=== PATIENT | female | born 1965 | race Caucasian/White ===

== ENCOUNTER → 2016-06-23 | Outpatient (CLI) | payer BC ==
--- NOTE | 2016-06-25 09:02 | SLEEPHOME ---
DATE OF PROCEDURE: 06/23/2016 ORDERED BY: Alysha Morales Diagnostic home sleep testing was performed due to concern for the obstructive sleep apnea syndrome. For testing, a NOX-T3 respiratory monitoring device was utilized. Continuous record was made of pulse, oxygen saturation, airflow, chest and abdominal strain, and body position. 10 hours and 59 minutes of data were reviewed. Of these, 7 hours and 53 minutes were marked as time in bed. During the interval marked time in bed, there were 40 respiratory events identified of 10 seconds in duration or greater for a respiratory event index of 5.1. The events identified were primarily obstructive. Baseline heart rate 74 beats per minute. Pulse rate ranged 64 to 86. Baseline saturation was 94%. Lowest oxygen saturation was 91%. Testing was performed in both the supine and nonsupine positions. IMPRESSION: Abnormal home sleep testing with repetitive respiratory events and oxygen desaturations to 91% with a respiratory event index of 5.1 is consistent with the obstructive sleep apnea syndrome. RECOMMENDATION: The patient should be referred for formal sleep evaluation and in-laboratory pressure titration.
== END ==
LOC: M SLEEP HO 11:16
PROVIDERS: ATTEND Family Medicine
DX: G47.19 Other hypersomnia (principal)

== ENCOUNTER → 2016-10-01 | Outpatient (REF) | payer BC ==
[2016-10-01 12:59] LABS: MEAN CORPUSCULAR HEMOGLOBIN 30.4 pg (27.0-33.0); MEAN CORPUSCULAR HGB CONC 33.6 g/dl (32.0-36.5); MEAN CORPUSCULAR VOLUME 90.6 fl (80.0-96.0); RED CELL DISTRIBUTION WIDTH 12.3 % (11.5-14.5); WHITE BLOOD COUNT 6.8 K/mm3 (4.0-10.0)
== END ==
LOC: M SFHCPLAZ 10:39
PROVIDERS: ATTEND Family Medicine
DX: R53.83 Other fatigue (principal)

== ENCOUNTER → 2018-02-17 | Outpatient (REF) | payer BC ==
[2018-02-17 14:50] LABS: ALBUMIN 4.3 GM/DL (3.2-5.2); ALBUMIN/GLOBULIN RATIO 1.39 (1.00-1.93); ALKALINE PHOSPHATASE 62 U/L (45-117); ALT/SGPT 28 U/L (12-78); ANION GAP 8 MEQ/L (8-16); AST/SGOT 16 U/L (7-37); BILIRUBIN,TOTAL 0.4 MG/DL (0.2-1.0); BLOOD UREA NITROGEN 15 MG/DL (7-18); CALCIUM LEVEL 9.3 MG/DL (8.5-10.1); CARBON DIOXIDE LEVEL 28 MEQ/L (21-32); CHLORIDE LEVEL 103 MEQ/L (98-107); CHOLESTEROL LEVEL 224 MG/DL (<200); CHOLESTEROL RISK RATIO 3.672 (<5); GLOMERULAR FILTRATION RATE > 60.0 (>51); GLUCOSE, FASTING 80 MG/DL (70-100); HDL CHOLESTEROL 61 MG/DL (>40); LDL CHOLESTEROL 142 MG/DL (<100); NON-HDL-C 163 MG/DL; POTASSIUM SERUM 4.3 MEQ/L (3.5-5.1); SODIUM LEVEL 139 MEQ/L (136-145); THYROID STIMULATING HORMONE 0.741 uIU/ML (0.358-3.740); TOTAL 25(OH) VITAMIN D 22.8 NG/ML (30.0-100.0); TOTAL PROTEIN 7.4 GM/DL (6.4-8.2); TRIGLYCERIDES LEVEL 107 MG/DL (<150)
== END ==
LOC: M SFHCPLAZ 09:18
DX: K59.09 Other constipation (principal); Z13.220 Encounter for screening for lipoid disorders
CPT/HCPCS: 84443

== ENCOUNTER → 2018-02-23 | Outpatient (REF) | payer BC ==
[2018-02-23 12:22] LABS: APPEARANCE, URINE CLOUDY (CLEAR); BACTERIA, URINE AUTO 2+ (NEGATIVE); BILIRUBIN, URINE AUTO NEGATIVE (NEGATIVE); BLOOD, URINE BLOOD 3+ (NEGATIVE); COLOR, URINE AMBER (YELLOW); GLUCOSE, URINE (UA) AUTO NEGATIVE (NEGATIVE); KETONE, URINE AUTO NEGATIVE (NEGATIVE); LEUKOCYTE ESTERASE, URINE AUTO 3+ (NEGATIVE); NITRITE, URINE AUTO POSITIVE (NEGATIVE); PROTEIN, URINE AUTO NEGATIVE (NEGATIVE); RBC, URINE AUTO 6 /HPF (0-3); SPECIFIC GRAVITY URINE AUTO 1.003 (1.002-1.035); SQUAMOUS EPITHELIAL CELL UR AU 0 /HPF (0-6); WBC, URINE AUTO TNTC /HPF (0-3)
== END ==
LOC: M SFHCPLAZ 11:56
DX: R30.0 Dysuria (principal)
CPT/HCPCS: 81001

== ENCOUNTER → 2018-04-06 | Outpatient (CLI) | payer BC | LOC: M RAD 09:02 | DX: K42.9 Umbilical hernia without obstruction or gangrene (principal) | CPT/HCPCS: 76705 ==

== ENCOUNTER 2018-05-04 09:13 | Day surgery (SDC) | payer BC ==
[~2018-05-04 09:13] MED LIST: PROPOFOL 200 MG/20 ML VIAL As Ordered; ROCURONIUM BROMIDE 50 MG/5 ML VIAL As Ordered
[2018-05-04] MEDS ORDERED: SCOPOLAMINE 1MG TRANSDERMAL PATCH As Ordered (10:38)
[2018-05-04] MEDS ORDERED: KETOROLAC 60 MG/2 ML VIAL (J1885) As Ordered (10:51)
[2018-05-04] MEDS ORDERED: dexameTHASONE 4 MG/ML 1ML VIAL (J1100) As Ordered ×2 (10:51)
[2018-05-04] MEDS ORDERED: LIDOCAINE 2% INJ 100 MG/5 ML SDV (FOR ANES.) As Ordered (10:51)
[2018-05-04] MEDS ORDERED: ONDANSETRON 4MG/2ML VIAL (J2405) As Ordered (10:51)
[2018-05-04] MEDS ORDERED: fentaNYL 250 MCG/5 ML INJECTION (J3010) As Ordered (10:53)
[2018-05-04] MEDS ORDERED: SCOPOLAMINE 1MG TRANSDERMAL PATCH TOP (11:00)
[2018-05-04] MEDS ORDERED: MIDAZOLAM INJ 2 MG/2 ML VIAL (J2250) As Ordered (11:03)
[2018-05-04] MEDS: BUPIVACAINE/EPIN 0.25% 30 ML VIAL As Ordered (11:31)
[2018-05-04] MEDS ORDERED: SUGAMMADEX SODIUM 500 MG/5 ML VIAL (BRIDION) As Ordered (12:07)
[2018-05-04] MEDS ORDERED: HYDROMORPHONE HCL 0.5 MG/ 0.5 ML SYRINGE (J1170 PER 1) IV (13:15)
[2018-05-04] MEDS ORDERED: LR 1,000 ML IV (13:15)
[2018-05-04] MEDS ORDERED: ONDANSETRON 4MG/2ML VIAL (J2405) IV (13:15)
[2018-05-04] MEDS: PERCOCET 5MG/325MG TAB PO ×2 (13:29→14:01)
[2018-05-04] MEDS ORDERED: NORCO, ANEXSIA 5/325MG TABLET (HYDROcodone/ACETAMINOPHEN) PO (13:30)
[2018-05-04] MEDS: fentaNYL 100 MCG/2 ML INJECTION (J3010) IV ×4 (13:42→13:57)
== END 2018-05-04 16:05 | disposition home or self-care (01) ==
LOC: M SDC 09:13
DX: K43.6 Other and unspecified ventral hernia with obstruction, without gangrene (principal); K42.0 Umbilical hernia with obstruction, without gangrene; F32.9 Major depressive disorder, single episode, unspecified; F41.9 Anxiety disorder, unspecified; G43.909 Migraine, unspecified, not intractable, without status migrainosus; G47.33 Obstructive sleep apnea (adult) (pediatric); K59.00 Constipation, unspecified; M54.2 Cervicalgia; Z97.5 Presence of (intrauterine) contraceptive device
CPT/HCPCS: 49653

== ENCOUNTER → 2018-08-30 | Outpatient (CLI) | payer BC ==
[~2018-08-30] MED LIST changes: +MIRA3350 PO; +MIRE1IUD IU; -PROPOFOL 200 MG/20 ML VIAL As Ordered; -ROCURONIUM BROMIDE 50 MG/5 ML VIAL As Ordered; +VENL150C43 PO
--- NOTE | 2018-09-05 15:21 | REPMRS ---
Patient History The patient states she had a clinical breast exam in 08/2018. Family history of breast cancer at age 27 in paternal grandmother, breast cancer at age 60 in maternal aunt. Taking hormonal contraceptives for 13 years. Digital Woman Screen Mammo: August 30, 2018 - Exam #: [id number] Bilateral CC and MLO view(s) were taken. Technologist: Cindy Shay, Technologist Prior study comparison: 2015, bilateral digital mammo screening bilat, performed at [facility]. November 22, 2013, bilateral digital woman screen mammo, performed at [facility]. August 08, 2012, bilateral digital woman screen mammo, performed at [facility]. FINDINGS: The breast tissue is heterogeneously dense. This may lower the sensitivity of mammography. There is a moderate amount of heterogeneously dense fibroglandular tissue which is fairly symmetric. There is no interval development of dominant mass, architectural distortion, or clustered microcalcification typical of malignancy. There has been no change in the appearance of the mammogram from the prior studies. 3-D tomosynthesis shows no additional findings. Assessment: BI-RADS/ACR category 1 mammogram. Negative Mammogram. Recommendation Breast MRI of both breasts in 6 months. Routine screening mammogram of both breasts in 1 year (for women over age 40). This patient's Lifetime Breast Cancer RIsk is estimated at 21.1 %. Annual screening Breast MRI scanniing is recommended for patient's whose lifetime risk assessment is over 20%. This mammogram was interpreted with the aid of an FDA-approved computer-aided dectection system. Electronically Signed By: Samm Holm MD 09/05/18 0785
== END ==
LOC: M WHC 13:29
PROVIDERS: ATTEND Nurse Practitioner Women's Health
DX: Z12.31 Encounter for screening mammogram for malignant neoplasm of breast (principal)

== ENCOUNTER → 2018-08-30 | Outpatient (REF) | payer BC ==
[2018-09-01 14:14] LABS: HPV HYBRID CAPTURE II Negative (Negative)
== END ==
LOC: M SFHCWAGY 13:39
PROVIDERS: ATTEND Nurse Practitioner Women's Health
DX: Z12.4 Encounter for screening for malignant neoplasm of cervix (principal); N87.0 Mild cervical dysplasia
CPT/HCPCS: 87624; G0123

== ENCOUNTER → 2019-05-16 | Outpatient (CLI) | payer BC ==
--- NOTE | 2019-05-16 14:21 | REP ---
REASON FOR EXAM: Hand pain. No history of trauma. FINDINGS: The joint spaces are symmetric and relatively well maintained. There is no evidence of acute fracture or destructive osseous lesion. There is minimal marginal osteophytosis seen involving the DIP joints of digits 2 and 3. IMPRESSION: Negative hand. Electronically Signed by Dirk Jenkins DO 05/16/2019 03:29 P
--- NOTE | 2019-05-16 14:22 | REP ---
REASON FOR EXAM: Lateral wrist pain. PRIORS: None. FINDINGS: No acute fracture or destructive osseous lesion. Electronically Signed by Dirk Jenkins DO 05/16/2019 03:28 P
== END ==
LOC: M WUC 09:42
PROVIDERS: ATTEND Nurse Practitioner Family
DX: M25.532 Pain in left wrist (principal); M79.642 Pain in left hand

== ENCOUNTER → 2019-07-18 | Outpatient (REF) | payer BC ==
[2019-07-18 09:56] LABS: HEMATOCRIT 46.4 % (36.0-47.0); HEMOGLOBIN 15.1 g/dl (12.0-15.5); MEAN CORPUSCULAR HEMOGLOBIN 28.7 pg (27.0-33.0); MEAN CORPUSCULAR HGB CONC 32.5 g/dl (32.0-36.5); PLATELET COUNT, AUTOMATED 312 10^3/uL (150-450); RED BLOOD COUNT 5.27 10^6/uL (4.00-5.40); WHITE BLOOD COUNT 6.2 10^3/uL (4.0-10.0)
[2019-07-18 10:29] LABS: VITAMIN B12 LEVEL 914 PG/ML (247-911)
[2019-07-18 11:06] LABS: FERRITIN 53 NG/ML (8-252); IRON (FE) 81 UG/DL (50-170); MAGNESIUM LEVEL 2.3 MG/DL (1.8-2.4); PERCENT SATURATION 28.1 % (13.2-45.0); THYROID STIMULATING HORMONE 0.812 uIU/ML (0.358-3.740); TOTAL IRON BINDING CAPACITY 288 UG/DL (250-450)
== END ==
LOC: M SFHCPLAZ 08:14
PROVIDERS: ATTEND Family Medicine
DX: R25.1 Tremor, unspecified (principal); R20.0 Anesthesia of skin; G25.81 Restless legs syndrome

== ENCOUNTER → 2019-07-18 | Outpatient (CLI) | payer BC ==
--- NOTE | 2019-07-18 09:10 | REPPI ---
Clinical: Left knee pain. Technique: AP, lateral, bilateral oblique and sunrise views of the left knee. Findings: Spurring to the tibial spines along with early osteophyte formation along the medial femoral condyle is appreciated. Lateral and sunrise views demonstrate increase sclerosis along the posterior patellar margin with lateral and superior osteophytes and decreased patellofemoral joint space. There is no evidence for acute fracture dislocation. No obvious effusion. Impression: Mild/early moderate osteoarthritic degenerative changes primarily involving the patella and patellofemoral joint space. Electronically Signed by Quan Shaw MD 07/18/2019 09:01 A
== END ==
LOC: M PLAIMG 08:45
PROVIDERS: ATTEND Family Medicine
DX: M25.562 Pain in left knee (principal)

== ENCOUNTER → 2020-02-24 | Outpatient (CLI) | payer BC ==
[~2020-02-24] MED LIST changes: +PSEU30TA85 PO
== END ==
LOC: M LABSMTC 09:18
PROVIDERS: ATTEND Anesthesiology
DX: Z01.812 Encounter for preprocedural laboratory examination (principal); Z20.828 Contact with and (suspected) exposure to other viral communicable diseases
CPT/HCPCS: C9803; U0003

== ENCOUNTER 2020-02-29 08:39 | Day surgery (SDC) | payer BC ==
[~2020-02-29] VITALS: Ht 157.5 cm; Wt 67.1 kg
[~2020-02-29 08:39] MED LIST changes: +LIDOCAINE 2% 100MG/5ML SDV (FOR ANES.) As Ordered ONE; +NS 1,000 ML IV ONE; +propofoL 200 MG/20 ML VIAL As Ordered ONE
--- NOTE | 2020-02-29 09:36 | ROOR ---
Patient Name: Nadja Alva Procedure Date: 02/29/2020 9:02 AM Date of : 1965 Age: 54 Room: [facility] Gender: Female Note Status: Finalized Procedure: Colonoscopy Indications: Screening for colorectal malignant neoplasm, This is the patient's first colonoscopy Providers: Juan Miguel Choudhary MD Referring MD: Alysha Morales MD Requesting Provider: Medicines: Monitored Anesthesia Care Complications: No immediate complications. Procedure: Pre-Anesthesia Assessment: - Prior to the procedure, a History and Physical was performed, and patient medications and allergies were reviewed. The patient is competent. The risks and benefits of the procedure and the sedation options and risks were discussed with the patient. All questions were answered and informed consent was obtained. Patient identification and proposed procedure were verified by the physician, the nurse and the anesthesiologist in the procedure room. Mental Status Examination: alert and oriented. Airway Examination: normal oropharyngeal airway and neck mobility. Prophylactic Antibiotics: The patient does not require prophylactic antibiotics. Prior Anticoagulants: The patient has taken no previous anticoagulant or antiplatelet agents. ASA Grade Assessment: III - A patient with severe systemic disease. After reviewing the risks and benefits, the patient was deemed in satisfactory condition to undergo the procedure. The anesthesia plan was to use monitored anesthesia care (MAC). Immediately prior to administration of medications, the patient was re-assessed for adequacy to receive sedatives. The heart rate, respiratory rate, oxygen saturations, blood pressure, adequacy of pulmonary ventilation, and response to care were monitored throughout the procedure. The physical status of the patient was re-assessed after the procedure. The Colonoscope was introduced through the anus and advanced to the cecum, identified by appendiceal orifice and ileocecal valve. The colonoscopy was performed without difficulty. The patient tolerated the procedure well. The quality of the bowel preparation was excellent. Findings: The perianal and digital rectal examinations were normal. The colon (entire examined portion) appeared normal. Impression: - The entire examined colon is normal. - No specimens collected. Recommendation: - Discharge patient to home. - Resume previous diet. - Continue present medications. - Repeat colonoscopy in 10 years for screening purposes. Juan Miguel Choudhary MD Juan Miguel Choudhary MD 02/29/2020 9:35:28 AM Electronically signed by Juan Miguel Choudhary MD Number of Addenda: 0 Note Initiated On: 02/29/2020 9:02 AM Estimated Blood Loss: Estimated blood loss: none.
[2020-02-29 09:50] VITALS: BP 111/71
== END 2020-02-29 10:00 | disposition home or self-care (01) ==
LOC: M OPP 08:39
PROVIDERS: ATTEND Surgery
DX: Z12.11 Encounter for screening for malignant neoplasm of colon (principal); G47.30 Sleep apnea, unspecified

== ENCOUNTER → 2020-06-16 | Outpatient (CLI) | payer SELFPAY ==
[~2020-06-16] MED LIST changes: -LIDOCAINE 2% 100MG/5ML SDV (FOR ANES.) As Ordered ONE; -NS 1,000 ML IV ONE; -propofoL 200 MG/20 ML VIAL As Ordered ONE
== END ==
LOC: M LABSMTC 09:40
PROVIDERS: ATTEND Pediatrics
DX: Z20.822 Contact with and (suspected) exposure to COVID-19 (principal)

== ENCOUNTER → 2020-09-09 | Outpatient (CLI) | payer BC ==
--- NOTE | 2020-09-10 10:04 | REP ---
INDICATION: PAIN COMPARISON: None. TECHNIQUE: AP, lateral, bilateral oblique and sunrise views of the right and left knee. FINDINGS: Right knee demonstrates mild early osteophyte formation along the femoral condyles with minimally increased sclerosis along the tibial plateau. Lateral and sunrise views demonstrate increased sclerosis along the posterior patellar margin and anterior patellar margin along with moderate osteophyte along the superior and lateral margins of the patella with associated patellofemoral joint space narrowing. No fracture or dislocation. No obvious effusion. Left knee demonstrates cortical irregularity and early osteophyte formation of the femoral condyles with mildly increased sclerosis along the tibial plateau. Lateral and sunrise views demonstrate increased sclerosis along the anterior and posterior patellar margins with moderate lateral osteophyte formation and decreased patellofemoral joint space. No acute fracture or dislocation. No obvious effusion. IMPRESSION: Moderate tricompartmental osteoarthritic degenerative changes (left greater than right). <Electronically signed by Quan Shaw > 09/10/20 [id number]
== END ==
LOC: M WUC 11:50
PROVIDERS: ATTEND Physician Assistant
DX: M17.0 Bilateral primary osteoarthritis of knee (principal)

== ENCOUNTER → 2020-09-12 | Outpatient (CLI) | payer BC ==
--- NOTE | 2020-09-12 15:17 | REP ---
INDICATION: PAIN. AP standing view of both knees requested. COMPARISON: Comparison bilateral knee radiographs September 09, 2020.. TECHNIQUE: Standing AP view of both knees. Single-view presented. FINDINGS: There is no observable joint space narrowing. Minimal osteophytic lipping is seen in the medial and lateral compartments bilaterally. IMPRESSION: Mild bilateral tibiofemoral compartment osteoarthritis. No joint space narrowing seen. <Electronically signed by Samm Holm > 09/12/20 [id number]
== END ==
LOC: M SOG 09:02
PROVIDERS: ATTEND Family Medicine
DX: M17.0 Bilateral primary osteoarthritis of knee (principal)

== ENCOUNTER 2020-10-08 15:17 | Outpatient (RCR) | payer BC | END 2020-10-28 | LOC: M PT 15:17 | PROVIDERS: ATTEND Orthopaedic Surgery Adult Reconstructive Orthopaedic Surgery | DX: M17.0 Bilateral primary osteoarthritis of knee (principal) ==

== ENCOUNTER → 2020-11-22 | Outpatient (REF) | payer BC | LOC: M WUC 11:08 | PROVIDERS: ATTEND Physician Assistant | DX: J02.9 Acute pharyngitis, unspecified (principal) ==

== ENCOUNTER → 2021-01-21 | Outpatient (REF) | payer BC ==
[~2021-01-21] MED LIST changes: -PSEU30TA85 PO; +PSEU30TA86 PO
== END ==
LOC: M SFHCWAGY 10:09
PROVIDERS: ATTEND Nurse Practitioner Women's Health
DX: Z12.4 Encounter for screening for malignant neoplasm of cervix (principal); Z77.9 Other contact with and (suspected) exposures hazardous to health; R87.610 Atypical squamous cells of undetermined significance on cytologic smear of cervix (ASC-US)
CPT/HCPCS: 87624; G0123

== ENCOUNTER → 2021-07-01 | Outpatient (CLI) | payer BC | LOC: M WUC 08:44 | PROVIDERS: ATTEND Internal Medicine Gastroenterology | DX: K76.9 Liver disease, unspecified (principal) ==

== ENCOUNTER → 2021-07-01 | Outpatient (CLI) | payer BC | LOC: M WUC 08:41 | PROVIDERS: ATTEND Family Medicine | DX: R41.840 Attention and concentration deficit (principal); F98.8 Other specified behavioral and emotional disorders with onset usually occurring in childhood and adolescence ==

== ENCOUNTER → 2021-07-14 | Outpatient (REF) | payer BC | LOC: M SFHCPLAZ 13:08 | PROVIDERS: ATTEND Physician Assistant | DX: R30.0 Dysuria (principal) ==

== ENCOUNTER 2021-10-09 10:27 | Emergency (ER) | payer BC, OTHER ==
[~2021-10-09] VITALS: Ht 160 cm; Wt 65.5 kg
[2021-10-09 10:28] VITALS: BP 131/87
[2021-10-09] MEDS ORDERED: RABIES VACCINE HUMAN 2.5 INTERNATIONAL UNITS/ML VIAL (90675) IM ONE (11:10)
[2021-10-09] MEDS ORDERED: RABIES IMMUNE GLOBULIN 1500 INTERNATIONAL UNIT/5ML VIAL (90375) IM ONE (11:10)
[2021-10-09] MEDS ORDERED: MONT10TA97 (12:05)
[2021-10-09] MEDS ORDERED: AMPH1CAP15 (12:05)
[2021-10-09] MEDS ORDERED: RIZA10TA58 (12:05)
[2021-10-09] MEDS ORDERED: GABA-282 (12:05)
[2021-10-09] MEDS ORDERED: ZONI50CA11 (12:05)
[2021-10-09] MEDS ORDERED: TRAZ-252 (12:05)
[2021-10-09] MEDS ORDERED: AMOX875T2 (12:05)
== END 2021-10-09 14:59 | disposition home or self-care (01) ==
LOC: M ED 10:27
DX: Z29.14 Encounter for prophylactic rabies immune globulin (principal); W55.01XA Bitten by cat, initial encounter; Y92.410 Unspecified street and highway as the place of occurrence of the external cause; Y93.9 Activity, unspecified; Y99.9 Unspecified external cause status

== ENCOUNTER 2021-10-12 07:31 | Emergency (ER) | payer BC, OTHER ==
[~2021-10-12] VITALS: Ht 160 cm; Wt 66.8 kg
[~2021-10-12 07:31] MED LIST changes: +AMOX875T2; +AMPH1CAP15; +GABA-282; +MONT10TA97; +RIZA10TA58; +TRAZ-252; +ZONI50CA11
[2021-10-12] MEDS ORDERED: RABIES VACCINE HUMAN 2.5 INTERNATIONAL UNITS/ML VIAL (90675) IM ONE (09:05)
[2021-10-12 09:37] VITALS: BP 122/84
== END 2021-10-12 09:42 | disposition home or self-care (01) ==
LOC: M ED 07:31
DX: Z29.14 Encounter for prophylactic rabies immune globulin (principal); W55.01XA Bitten by cat, initial encounter; F41.9 Anxiety disorder, unspecified; R51.9 Headache, unspecified; F32.A Depression, unspecified; Z79.899 Other long term (current) drug therapy; Y92.9 Unspecified place or not applicable; Y93.9 Activity, unspecified; Y99.9 Unspecified external cause status

== ENCOUNTER 2021-10-16 07:04 | Emergency (ER) | payer BC, OTHER ==
[~2021-10-16] VITALS: Ht 160 cm; Wt 66.1 kg
[2021-10-16] MEDS ORDERED: RABIES VACCINE HUMAN 2.5 INTERNATIONAL UNITS/ML VIAL (90675) IM ONE (07:40)
[2021-10-16 08:28] VITALS: BP 142/89
== END 2021-10-16 08:35 | disposition home or self-care (01) ==
LOC: M ED 07:04
DX: Z29.14 Encounter for prophylactic rabies immune globulin (principal)

== ENCOUNTER 2021-10-23 07:16 | Emergency (ER) | payer OTHER, BC ==
[~2021-10-23] VITALS: Ht 160 cm; Wt 65.5 kg
[2021-10-23 07:17] VITALS: BP 134/93
[2021-10-23] MEDS ORDERED: RABIES VACCINE HUMAN 2.5 INTERNATIONAL UNITS/ML VIAL (90675) IM ONE (07:55)
== END 2021-10-23 10:13 | disposition home or self-care (01) ==
LOC: M ED 07:16
DX: Z29.14 Encounter for prophylactic rabies immune globulin (principal); W55.01XD Bitten by cat, subsequent encounter; F32.A Depression, unspecified; G43.909 Migraine, unspecified, not intractable, without status migrainosus; Z79.899 Other long term (current) drug therapy

== ENCOUNTER → 2022-01-27 | Outpatient (REF) | payer BC ==
[2022-01-27 14:28] LABS: CHOLESTEROL LEVEL 207 MG/DL (<200); CHOLESTEROL RISK RATIO 2.835 (<5); HDL CHOLESTEROL 73 MG/DL (>40); LDL CHOLESTEROL 122 MG/DL (<100); NON-HDL-C 134 MG/DL; TRIGLYCERIDES LEVEL 60 MG/DL (<150)
[2022-01-30 10:34] LABS: IRON (FE) 101 UG/DL (50-170); PERCENT SATURATION 38.8 % (13.2-45.0); TOTAL IRON BINDING CAPACITY 260 UG/DL (250-450)
[2022-01-30 11:01] LABS: VITAMIN B12 LEVEL 940 PG/ML (247-911)
[2022-01-30 11:02] LABS: FOLATE > 24.0 NG/ML (>5.4)
== END ==
LOC: M SFHCADAM 08:16
PROVIDERS: ATTEND Physician Assistant
DX: E78.5 Hyperlipidemia, unspecified (principal)

== ENCOUNTER → 2022-02-19 | Outpatient (CLI) | payer BC ==
[2022-02-19 20:11] LABS: BASO # 0.1 10^3/uL (0.0-0.2); BASO % 0.7 % (0.0-1.0); EOS # 0.2 10^3/uL (0.0-0.5); HEMATOCRIT 46.5 % (36.0-47.0); HEMOGLOBIN 15.1 g/dl (12.0-15.5); LYMPH # 3.3 10^3/uL (1.5-5.0); MEAN CORPUSCULAR HEMOGLOBIN 28.7 pg (27.0-33.0); MEAN CORPUSCULAR HGB CONC 32.5 g/dl (32.0-36.5); MEAN CORPUSCULAR VOLUME 88.4 fl (80.0-96.0); MONO # 0.5 10^3/uL (0.0-0.8); MONO % 5.5 % (2.0-8.0); NEUTROPHILS # 4.2 10^3/uL (1.5-8.5); NEUTROPHILS % 51.6 % (36.0-66.0); PLATELET COUNT, AUTOMATED 348 10^3/uL (150-450); RED BLOOD COUNT 5.26 10^6/uL (4.00-5.40); WHITE BLOOD COUNT 8.2 10^3/uL (4.0-10.0)
== END ==
LOC: M WUC 15:01
PROVIDERS: ATTEND Physician Assistant
DX: R53.83 Other fatigue (principal)

== ENCOUNTER → 2022-03-16 | Outpatient (CLI) | payer BC | LOC: M RAD 15:49 | PROVIDERS: ATTEND Otolaryngology | DX: G50.1 Atypical facial pain (principal) ==

== ENCOUNTER → 2022-09-16 | Outpatient (REF) | payer BC ==
[2022-09-16 14:11] LABS: FREE T4 1.17 NG/DL (0.89-1.76); THYROID STIMULATING HORMONE 1.001 uIU/ML (0.55-4.78)
[2022-09-16 14:12] LABS: FOLLICLE STIMULATING HORMONE 49.6 mIU/ML; LUTEINIZING HORMONE 27.6 mIU/ML
[2022-09-19 21:10] LABS: ESTROGENS TOTAL 55 pg/mL (.)
== END ==
LOC: M SFHCADAM 07:50
PROVIDERS: ATTEND Physician Assistant
DX: Z78.0 Asymptomatic menopausal state (principal)

== ENCOUNTER → 2022-11-11 | Outpatient (CLI) | payer BC | LOC: M SOG 08:23 | PROVIDERS: ATTEND Orthopaedic Surgery | DX: M54.50 Low back pain, unspecified (principal) ==

== ENCOUNTER → 2022-12-30 | Outpatient (REF) | payer BC ==
[2022-12-30 16:08] LABS: APPEARANCE, URINE CLEAR (CLEAR); BACTERIA, URINE AUTO NEGATIVE (NEGATIVE); BILIRUBIN, URINE AUTO NEGATIVE (NEGATIVE); BLOOD, URINE BLOOD NEGATIVE (NEGATIVE); COLOR, URINE STRAW (YELLOW); GLUCOSE, URINE (UA) AUTO NEGATIVE (NEGATIVE); KETONE, URINE AUTO NEGATIVE (NEGATIVE); LEUKOCYTE ESTERASE, URINE AUTO NEGATIVE (NEGATIVE); NITRITE, URINE AUTO NEGATIVE (NEGATIVE); PROTEIN, URINE AUTO NEGATIVE (NEGATIVE); RBC, URINE AUTO 0 /HPF (0-3); SPECIFIC GRAVITY URINE AUTO 1.005 (1.002-1.035); SQUAMOUS EPITHELIAL CELL UR AU 0 /HPF (0-6); UROBILINOGEN, URINE AUTO 0.2 mg/dL (0.0-2.0); WBC, URINE AUTO 0 /HPF (0-3)
== END ==
LOC: M SFHCADAM 15:56
PROVIDERS: ATTEND Physician Assistant Medical
DX: R30.0 Dysuria (principal)

== ENCOUNTER → 2023-01-05 | Outpatient (REF) | payer BC | LOC: M SFHCADAM 12:15 | PROVIDERS: ATTEND Family Medicine | DX: R30.0 Dysuria (principal) ==

== ENCOUNTER → 2023-01-08 | Outpatient (CLI) | payer BC | LOC: M RAD 07:41 | PROVIDERS: ATTEND Pain Medicine Interventional Pain Medicine | DX: M47.816 Spondylosis without myelopathy or radiculopathy, lumbar region (principal) ==

== ENCOUNTER → 2023-01-14 | Outpatient (REF) | payer BC | LOC: M SFHCWAGY 10:07 | PROVIDERS: ATTEND Nurse Practitioner Family | DX: R10.2 Pelvic and perineal pain (principal) ==

== ENCOUNTER → 2023-03-16 | Outpatient (REF) | payer BC | LOC: M SFHCWAGY 18:25 | PROVIDERS: ATTEND Nurse Practitioner Family | DX: Z12.4 Encounter for screening for malignant neoplasm of cervix (principal) | CPT/HCPCS: 87624; G0123 ==

== ENCOUNTER → 2023-03-17 | Outpatient (REF) | payer BC ==
[2023-03-17 15:10] LABS: BASO % 0.6 % (0.0-1.0); EOS # 0.1 10^3/uL (0.0-0.5); EOS % 1.2 % (0.0-3.0); HEMATOCRIT 44.5 % (36.0-47.0); HEMOGLOBIN 14.4 g/dl (12.0-15.5); LYMPH % 28.3 % (24.0-44.0); MEAN CORPUSCULAR HEMOGLOBIN 29.1 pg (27.0-33.0); MEAN CORPUSCULAR HGB CONC 32.4 g/dl (32.0-36.5); MEAN CORPUSCULAR VOLUME 90.1 fl (80.0-96.0); MONO # 0.4 10^3/uL (0.0-0.8); MONO % 5.4 % (2.0-8.0); NEUTROPHILS # 4.4 10^3/uL (1.5-8.5); NEUTROPHILS % 64.2 % (36.0-66.0); PLATELET COUNT, AUTOMATED 285 10^3/uL (150-450); RED BLOOD COUNT 4.94 10^6/uL (4.00-5.40); WHITE BLOOD COUNT 6.9 10^3/uL (4.0-10.0)
[2023-03-17 15:21] LABS: ALBUMIN 4.1 G/DL (3.2-5.2); ALKALINE PHOSPHATASE 64 U/L (46-116); ALT/SGPT 34 U/L (7.0-40); AST/SGOT 29 U/L (<34); BILIRUBIN,TOTAL 0.4 MG/DL (0.3-1.2); BLOOD UREA NITROGEN 19 MG/DL (9-23); CALCIUM LEVEL 9.6 MG/DL (8.5-10.1); CARBON DIOXIDE LEVEL 29 MMOL/L (20-31); CHLORIDE LEVEL 104 MMOL/L (98-107); CHOLESTEROL LEVEL 201 MG/DL (<200); CREATININE FOR GFR 0.93 MG/DL (0.55-1.30); FREE T4 1.14 NG/DL (0.89-1.76); GLOMERULAR FILTRATION RATE > 60.0 (>51); GLUCOSE, FASTING 93 MG/DL (60-100); MAGNESIUM LEVEL 2.5 MG/DL (1.8-2.4); POTASSIUM SERUM 4.5 MMOL/L (3.5-5.1); SODIUM LEVEL 140 MMOL/L (136-145); THYROID STIMULATING HORMONE 0.963 uIU/ML (0.55-4.78); TOTAL 25(OH) VITAMIN D 52.9 NG/ML (20.0-100.0); TOTAL PROTEIN 6.6 G/DL (5.7-8.2); TRIGLYCERIDES LEVEL 61 MG/DL (<150); VITAMIN B12 LEVEL 1421 PG/ML (211-911)
[2023-03-17 18:53] LABS: CHOLESTEROL RISK RATIO 2.57 (<5); LDL CHOLESTEROL 110.8 MG/DL (<100)
== END ==
LOC: M LABDRWAD 12:56
PROVIDERS: ATTEND Physician Assistant
DX: E04.1 Nontoxic single thyroid nodule (principal); F98.8 Other specified behavioral and emotional disorders with onset usually occurring in childhood and adolescence; E78.5 Hyperlipidemia, unspecified; F41.9 Anxiety disorder, unspecified

== ENCOUNTER → 2023-03-17 | Outpatient (REF) | payer BC ==
[2023-03-17 15:13] LABS: BLOOD UREA NITROGEN 19 MG/DL (9-23); CREATININE FOR GFR 0.94 MG/DL (0.55-1.30); GLOMERULAR FILTRATION RATE > 60.0 (>51)
== END ==
LOC: M LABDRWAD 12:58
PROVIDERS: ATTEND Internal Medicine Gastroenterology
DX: K76.9 Liver disease, unspecified (principal)

== ENCOUNTER → 2023-03-26 | Outpatient (CLI) | payer BC | LOC: M RAD 13:41 | PROVIDERS: ATTEND Nurse Practitioner Family | DX: R10.2 Pelvic and perineal pain (principal) ==

== ENCOUNTER → 2023-03-26 | Outpatient (CLI) | payer BC | LOC: M RAD 13:40 | PROVIDERS: ATTEND Physician Assistant | DX: E04.1 Nontoxic single thyroid nodule (principal) ==

== ENCOUNTER → 2023-07-15 | Outpatient (REF) | payer BC | LOC: M SFHCPLAZ 12:58 | PROVIDERS: ATTEND Physician Assistant | DX: J01.90 Acute sinusitis, unspecified (principal) ==

== ENCOUNTER → 2023-10-06 | Outpatient (REF) | payer BC ==
[~2023-10-06] MED LIST changes: -PSEU30TA86 PO; +PSEU30TA87 PO
[2023-10-06 13:24] LABS: ALBUMIN 3.9 G/DL (3.2-5.2); ALKALINE PHOSPHATASE 56 U/L (46-116); ALT/SGPT 31 U/L (7.0-40); AST/SGOT 21 U/L (<34); BILIRUBIN,TOTAL 0.5 MG/DL (0.3-1.2); BLOOD UREA NITROGEN 19 MG/DL (9-23); CALCIUM LEVEL 9.8 MG/DL (8.5-10.1); CARBON DIOXIDE LEVEL 29 MMOL/L (20-31); CHLORIDE LEVEL 108 MMOL/L (98-107); CHOLESTEROL LEVEL 211 MG/DL (<200); CHOLESTEROL RISK RATIO 3.09 (<5); CREATININE FOR GFR 0.87 MG/DL (0.55-1.30); GLOMERULAR FILTRATION RATE > 60.0 (>51); GLUCOSE, FASTING 98 MG/DL (60-100); HDL CHOLESTEROL 68.2 MG/DL (>40); IRON (FE) 92 UG/DL (50-170); LDL CHOLESTEROL 125.6 MG/DL (<100); MAGNESIUM LEVEL 2.4 MG/DL (1.8-2.4); NON-HDL-C 142.8 MG/DL; PERCENT SATURATION 34.3 % (13.2-45.0); SODIUM LEVEL 142 MMOL/L (136-145); TOTAL IRON BINDING CAPACITY 268 UG/DL (250-425); TOTAL PROTEIN 6.6 G/DL (5.7-8.2); TRIGLYCERIDES LEVEL 86 MG/DL (<150)
[2023-10-06 13:25] LABS: BASO # 0.1 10^3/uL (0.0-0.2); BASO % 0.9 % (0.0-1.0); EOS # 0.1 10^3/uL (0.0-0.5); EOS % 1.7 % (0.0-3.0); HEMATOCRIT 44.2 % (36.0-47.0); HEMOGLOBIN 14.7 g/dl (12.0-15.5); LYMPH # 2.4 10^3/uL (1.5-5.0); LYMPH % 40.3 % (24.0-44.0); MEAN CORPUSCULAR HEMOGLOBIN 29.9 pg (27.0-33.0); MEAN CORPUSCULAR HGB CONC 33.3 g/dl (32.0-36.5); MONO # 0.3 10^3/uL (0.0-0.8); MONO % 5.7 % (2.0-8.0); NEUTROPHILS % 51.2 % (36.0-66.0); PLATELET COUNT, AUTOMATED 273 10^3/uL (150-450); RED BLOOD COUNT 4.91 10^6/uL (4.00-5.40); THYROID STIMULATING HORMONE 0.683 uIU/ML (0.55-4.78); WHITE BLOOD COUNT 5.8 10^3/uL (4.0-10.0)
[2023-10-06 13:26] LABS: FERRITIN 72.6 NG/ML (7.3-270.7); FOLLICLE STIMULATING HORMONE 72.3 mIU/ML; LUTEINIZING HORMONE 38.3 mIU/ML; TOTAL 25(OH) VITAMIN D 50.2 NG/ML (20.0-100.0)
[2023-10-06 13:27] LABS: VITAMIN B12 LEVEL 1451 PG/ML (211-911)
== END ==
LOC: M SFHCPLAZ 08:18
PROVIDERS: ATTEND Physician Assistant
DX: F33.2 Major depressive disorder, recurrent severe without psychotic features (principal); E78.5 Hyperlipidemia, unspecified; F98.8 Other specified behavioral and emotional disorders with onset usually occurring in childhood and adolescence; N95.1 Menopausal and female climacteric states

== ENCOUNTER → 2023-10-18 | Outpatient (CLI) | payer BC ==
[2023-10-18 10:57] LABS: BILIRUBIN,DIRECT 0.1 MG/DL (<0.4); BILIRUBIN,TOTAL 0.5 MG/DL (0.3-1.2)
== END ==
LOC: M PLALAB 08:54
PROVIDERS: ATTEND Nurse Practitioner Family
DX: N95.1 Menopausal and female climacteric states (principal)

== ENCOUNTER → 2024-03-29 | Outpatient (CLI) | payer BC ==
[~2024-03-29] MED LIST changes: +GABA-1172; -GABA-282; +PROHANCE 279.3MG/ML 15ML VIAL ONE
== END ==
LOC: M PLAIMG 10:17
PROVIDERS: ATTEND Physician Assistant Medical
DX: K76.9 Liver disease, unspecified (principal)
CPT/HCPCS: 74183; A9576

== ENCOUNTER → 2024-06-15 | Outpatient (REF) | payer BC ==
[~2024-06-15] MED LIST changes: -PROHANCE 279.3MG/ML 15ML VIAL ONE
[2024-06-15 13:09] LABS: AMORPHOUS SEDIMENT SMALL (NEGATIVE); APPEARANCE, URINE CLEAR (CLEAR); BACTERIA, URINE AUTO 1+ (NEGATIVE); BILIRUBIN, URINE AUTO NEGATIVE (NEGATIVE); BLOOD, URINE BLOOD NEGATIVE (NEGATIVE); COLOR, URINE YELLOW (YELLOW); GLUCOSE, URINE (UA) AUTO NEGATIVE (NEGATIVE); KETONE, URINE AUTO NEGATIVE (NEGATIVE); LEUKOCYTE ESTERASE, URINE AUTO NEGATIVE (NEGATIVE); NITRITE, URINE AUTO NEGATIVE (NEGATIVE); PROTEIN, URINE AUTO NEGATIVE (NEGATIVE); RBC, URINE AUTO 4 /HPF (0-3); SPECIFIC GRAVITY URINE AUTO 1.009 (1.002-1.035); SQUAMOUS EPITHELIAL CELL UR AU 2 /HPF (0-6); UROBILINOGEN, URINE AUTO 0.2 mg/dL (0.0-2.0); WBC, URINE AUTO 1 /HPF (0-3)
== END ==
LOC: M SFHCADAM 12:21
PROVIDERS: ATTEND Physician Assistant Medical
DX: R10.2 Pelvic and perineal pain (principal)

== ENCOUNTER → 2024-07-07 | Outpatient (CLI) | payer BC ==
[~2024-07-07] MED LIST changes: +ISOVUE-370 76% 100ML VIAL As Ordered ONE
== END ==
LOC: M RAD 15:25
PROVIDERS: ATTEND Physician Assistant Medical
DX: R10.84 Generalized abdominal pain (principal); R31.29 Other microscopic hematuria; M54.50 Low back pain, unspecified; K76.89 Other specified diseases of liver
CPT/HCPCS: 74178; Q9967

== ENCOUNTER → 2024-09-01 | Outpatient (CLI) | payer BC ==
[~2024-09-01] MED LIST changes: -ISOVUE-370 76% 100ML VIAL As Ordered ONE
== END ==
LOC: M RAD 13:22
PROVIDERS: ATTEND Physician Assistant Medical
DX: J32.9 Chronic sinusitis, unspecified (principal); J34.1 Cyst and mucocele of nose and nasal sinus; J34.89 Other specified disorders of nose and nasal sinuses